=== PATIENT | female | born 1960 | race Two or more races ===

== ENCOUNTER 2025-06-21 11:20 | Day surgery (SDC) | payer OTHER ==
[2025-06-21] MEDS ORDERED: fentaNYL CITRATE 50 MCG/ML AMPUL IV PUSH ONE (13:30)
[2025-06-21] MEDS ORDERED: DIPHENHYDRAMINE HCL 50 MG/ML VIAL 1ML IV ONE (13:30)
[2025-06-21] MEDS ORDERED: MIDAZOLAM HCL 2 MG/2 ML VIAL IV ONE (13:30)
== END 2025-06-21 13:50 | disposition home or self-care (01) ==
LOC: AMB-ENDOS 11:20
PROVIDERS: ATTEND Internal Medicine
DX: D12.3 Benign neoplasm of transverse colon (principal); D12.5 Benign neoplasm of sigmoid colon; D12.4 Benign neoplasm of descending colon; K63.5 Polyp of colon; Z86.0101 Personal history of adenomatous and serrated colon polyps